=== PATIENT | male | born 1965 | race Two or more races ===

== ENCOUNTER 2023-06-21 09:30 | Emergency (ER) | payer MEDICAID ==
[~2023-06-21] VITALS: Ht 172.7 cm; Wt 119.9 kg
[2023-06-21 10:22] VITALS: BP 156/90; PULSE 77; RESP 18; TEMP 98; O2SAT 97
[2023-06-21] MEDS ORDERED: KETOROLAC TROMETH 60MG/2ML VIAL IM ONE (11:45)
[2023-06-21] MEDS ORDERED: HYDROcodone-ACET 5/325MG TAB PO ONE (11:45)
[2023-06-21] MEDS ORDERED: cefTRIAXone SOD 1,000 MG VL IM ONE (11:45)
[2023-06-21] MEDS ORDERED: HYDR-4902 PO (11:50)
[2023-06-21] MEDS ORDERED: OFL50TS OT (11:50)
[2023-06-21] MEDS ORDERED: AUG875T PO (11:50)
== END 2023-06-21 12:07 | disposition home or self-care (01) ==
LOC: ER 09:30
DX: R51.9 Headache, unspecified (principal); H66.93 Otitis media, unspecified, bilateral
CPT/HCPCS: 70450; 70486; 96372; 99285; J0696; J1885